=== PATIENT | male | born 1950 | race Caucasian/White ===

== ENCOUNTER 2017-05-18 15:08 | Emergency (ER) | payer OTHER ==
[~2017-05-18] VITALS: Ht 182.9 cm; Wt 110.0 kg
[~2017-05-18 15:08] MED LIST: ASPI-496 PO; CETI10TA18 PO; FLUT15.88 NAS; FURO-92 PO; GLUC-121 PO; HYDR-3245 PO; LEVO100T5 PO; LISI-167 PO; METF500T4 PO; METO25TA35 PO; MONT10TA9 PO; MULT-658 PO; POTA20TA14 PO; POTA99TA2 PO; WARF2TAB PO-COUM; WARF2TAB7 PO
[2017-05-18 16:33] LABS: HEMATOCRIT 43.1 % (39.2-51.8); HEMOGLOBIN 14.4 g/dL (13.7-18.0); WHITE BLOOD COUNT 9.4 x10^3/uL (3.4-10)
[2017-05-18 16:43] LABS: ASPARTATE AMINO TRANSFERASE 19 U/L (15-37); BLOOD UREA NITROGEN 15 mg/dL (7-18)
[2017-05-18 17:00] VITALS: BP 127/84
== END 2017-05-18 17:35 | disposition home or self-care (01) ==
LOC: ED 16:55
DX: M54.9 Dorsalgia, unspecified (principal); M79.1 Myalgia; E11.9 Type 2 diabetes mellitus without complications
CPT/HCPCS: 36415; 76770; 80053; 81001; 85025; 99285

== ENCOUNTER 2017-05-26 01:08 | Inpatient (IN) | payer OTHER, MEDICARE ==
[~2017-05-26] VITALS: Ht 182.9 cm; Wt 106.1 kg
[2017-05-26] MEDS ORDERED: SODIUM CHLORIDE 0.9% 1,000ML IVBOLUS ONE (01:30)
[2017-05-26] MEDS ORDERED: ONDANSETRON 2MG/ML, 2ML IVPush ONE (01:30)
[2017-05-26 01:49] LABS: HEMATOCRIT 40.8 % (39.2-51.8); HEMOGLOBIN 13.7 g/dL (13.7-18.0); WHITE BLOOD COUNT 7.6 x10^3/uL (3.4-10)
[2017-05-26] MEDS ORDERED: ONDANSETRON 2MG/ML, 2ML ONE (01:51)
[2017-05-26] MEDS ORDERED: HYDROmorphone 1 MG/ML, 1ML ONE ×3 (01:51→21:01)
[2017-05-26] MEDS: HYDROmorphone 1 MG/ML, 1ML IVPush PRN ×2 (01:57→04:28)
[2017-05-26 01:58] LABS: ASPARTATE AMINO TRANSFERASE 22 U/L (15-37); BLOOD UREA NITROGEN 22 mg/dL (7-18)
[2017-05-26] MEDS ORDERED: DIAZEPAM 5 MG/ML, 2ML IV ONE (03:00)
[2017-05-26] MEDS ORDERED: HYDROmorphone 1 MG/ML, 1ML IV ONE (06:00)
[2017-05-26] MEDS ORDERED: KETOROLAC 30 MG/1 ML IVPush ONE (06:00)
[2017-05-26] MEDS ORDERED: LABETALOL 5MG/ML, 20ML IVPush PRN (07:00)
[2017-05-26] MEDS ORDERED: methylPREDNISolone 4mg DOSE PACK PO SCH (07:00)
[2017-05-26] MEDS ORDERED: DEXTROSE 4 GM TAB.CHEW PO PRN (07:00)
[2017-05-26] MEDS ORDERED: DEXTROSE 50%, 50ML SYRINGE IVPush PRN (07:00)
[2017-05-26] MEDS ORDERED: GLUCAGON 1 MG IM PRN (07:00)
[2017-05-26] MEDS ORDERED: ACETAMINOPHEN 325 MG TABLET PO PRN (07:00)
[2017-05-26] MEDS: HYDROcodone/APAP 10/325 MG TABLET PO PRN ×4 (07:44→22:10)
[2017-05-26] MEDS: ENOXAPARIN 40 MG/0.4 ML SQ SCH (07:44)
[2017-05-26] MEDS: KETOROLAC 30 MG/1 ML IVPush SCH ×3 (07:44→19:30)
[2017-05-26 08:02] VITALS: BP 125/84
[2017-05-26] MEDS ORDERED: OMNIPAQUE 350 MG/ML, 150 ML BOTTLE ONE (09:47)
[2017-05-26] MEDS: FLUTICASONE NASAL SPRAY 16GM NAS SCH (10:27)
[2017-05-26] MEDS: METHOCARBAMOL 1,000 MG in DEXTROSE 5% 100 ML IV SCH ×2 (10:31→21:03)
[2017-05-26] MEDS: NS + 20MEQ KCL 1,000 ML IV SCH (10:31)
[2017-05-26] MEDS: SODIUM CHLORIDE FLUSH 10ML SYR IVF SCH ×2 (10:32→21:07)
[2017-05-26] MEDS: DOCUSATE 100 MG CAPSULE PO SCH ×2 (10:33→21:08)
[2017-05-26] MEDS: LEVOTHYROXINE 100 MCG TABLET PO SCH (10:34)
[2017-05-26] MEDS: metFORMIN 500 MG TABLET PO SCH ×2 (10:34→21:08)
[2017-05-26] MEDS: MULTIVITAMIN 1 TABLET PO SCH (10:34)
[2017-05-26] MEDS: ASPIRIN 81 MG TABLET EC PO SCH (10:34)
[2017-05-26] MEDS: MONTELUKAST 10 MG TABLET PO SCH (10:34)
[2017-05-26 12:41] VITALS: BP 136/90
[2017-05-26] MEDS: HYDROmorphone 2 MG/ML, 1ML IVPush PRN ×3 (13:28→21:03)
[2017-05-26 15:36] LABS: PATH.CAST-FLAG NOT PRESENT; SPERM-FLAG NOT PRESENT; SRC-FLAG NOT PRESENT; XTAL-FLAG NOT PRESENT; YLC-FLAG NOT PRESENT
[2017-05-26] MEDS ORDERED: GADOBUTROL 10 MMOL/10 ML PFS ONE (16:58)
[2017-05-26] MEDS: CEFTRIAXONE PMX 1GM/50ML 50 ML IV SCH (18:09)
[2017-05-26 19:30] VITALS: BP 135/78
[2017-05-26] MEDS: DOXYCYCLINE 100 MG in DEXTROSE 5% 250 ML IV SCH (19:30)
[2017-05-26] MEDS: TAMSULOSIN 0.4 MG CAP.ER.24H PO SCH (22:10)
[2017-05-27] MEDS: METHOCARBAMOL 1,000 MG in DEXTROSE 5% 100 ML IV SCH (01:02)
[2017-05-27] MEDS: NS + 20MEQ KCL 1,000 ML IV SCH ×2 (01:02→18:31)
[2017-05-27] MEDS ORDERED: HYDROmorphone 1 MG/ML, 1ML ONE ×4 (01:06→23:48)
[2017-05-27] MEDS: KETOROLAC 30 MG/1 ML IVPush SCH ×4 (01:07→18:31)
[2017-05-27] MEDS: HYDROmorphone 2 MG/ML, 1ML IVPush PRN ×4 (01:07→23:52)
[2017-05-27 01:42] VITALS: BP 104/70
[2017-05-27] MEDS: HYDROcodone/APAP 10/325 MG TABLET PO PRN ×6 (03:22→23:33)
[2017-05-27 05:20] LABS: BLOOD UREA NITROGEN 16 mg/dL (7-18)
[2017-05-27] MEDS: ENOXAPARIN 40 MG/0.4 ML SQ SCH (07:29)
[2017-05-27] MEDS: DOXYCYCLINE 100 MG in DEXTROSE 5% 250 ML IV SCH (07:29)
[2017-05-27] MEDS: ASPIRIN 81 MG TABLET EC PO SCH (07:30)
[2017-05-27] MEDS: MONTELUKAST 10 MG TABLET PO SCH (07:30)
[2017-05-27] MEDS: FLUTICASONE NASAL SPRAY 16GM NAS SCH (07:30)
[2017-05-27] MEDS: metFORMIN 500 MG TABLET PO SCH ×2 (07:30→20:44)
[2017-05-27] MEDS: MULTIVITAMIN 1 TABLET PO SCH (07:30)
[2017-05-27] MEDS: SODIUM CHLORIDE FLUSH 10ML SYR IVF SCH ×2 (07:30→20:44)
[2017-05-27] MEDS: DOCUSATE 100 MG CAPSULE PO SCH ×2 (07:30→20:44)
[2017-05-27] MEDS: LEVOTHYROXINE 100 MCG TABLET PO SCH (07:30)
[2017-05-27 07:45] VITALS: BP 108/72
[2017-05-27] MEDS ORDERED: PHARMACOKINETIC MONITORING MC PRN (08:30)
[2017-05-27] MEDS ORDERED: VANCOMYCIN PER PHARMACY MC PRN (08:30)
[2017-05-27] MEDS ORDERED: PHARMACOKINETIC CONSULTATION MC ONE (08:30)
[2017-05-27] MEDS ORDERED: VANCOMYCIN 2,000 MG in SODIUM CHLORIDE 0.9% 500 ML IV SCH (09:00)
[2017-05-27] MEDS: VANCOMYCIN 2,000 MG in SODIUM CHLORIDE 0.9% 500 ML IV SCH ×2 (09:10→20:48)
[2017-05-27 14:24] VITALS: BP 118/79
[2017-05-27] MEDS: CEFTRIAXONE PMX 1GM/50ML 50 ML IV SCH (16:44)
[2017-05-27 19:19] VITALS: BP 125/80
[2017-05-27] MEDS ORDERED: OMNIPAQUE 180 MG/ML, 10ML VIAL ONE (19:46)
[2017-05-27 20:29] LABS: GLUCOSE, CSF 94 mg/dL (40-80)
[2017-05-27] MEDS: TAMSULOSIN 0.4 MG CAP.ER.24H PO SCH (20:44)
[2017-05-27] MEDS: INSULIN ASPART 100 UNITS/ML, PEN SQ-INSULIN SCH ×2 (21:00→21:02)
[2017-05-28 01:25] VITALS: BP 149/89
[2017-05-28] MEDS: KETOROLAC 30 MG/1 ML IVPush SCH ×4 (01:38→18:36)
[2017-05-28] MEDS: HYDROcodone/APAP 10/325 MG TABLET PO PRN ×4 (04:15→22:21)
[2017-05-28 04:46] LABS: HEMATOCRIT 37.8 % (39.2-51.8); HEMOGLOBIN 12.8 g/dL (13.7-18.0); WHITE BLOOD COUNT 12.8 x10^3/uL (3.4-10)
[2017-05-28 05:00] LABS: BLOOD UREA NITROGEN 16 mg/dL (7-18)
[2017-05-28 06:54] VITALS: BP 143/88
[2017-05-28] MEDS: LEVOTHYROXINE 100 MCG TABLET PO SCH (08:39)
[2017-05-28] MEDS: DOCUSATE 100 MG CAPSULE PO SCH ×2 (08:39→21:20)
[2017-05-28] MEDS: ASPIRIN 81 MG TABLET EC PO SCH (08:39)
[2017-05-28] MEDS: metFORMIN 500 MG TABLET PO SCH ×2 (08:39→21:20)
[2017-05-28] MEDS: MONTELUKAST 10 MG TABLET PO SCH (08:39)
[2017-05-28] MEDS: ENOXAPARIN 40 MG/0.4 ML SQ SCH (08:40)
[2017-05-28] MEDS: NS + 20MEQ KCL 1,000 ML IV SCH ×2 (08:40→22:21)
[2017-05-28] MEDS: INSULIN ASPART 100 UNITS/ML, PEN SQ-INSULIN SCH ×4 (08:40→21:20)
[2017-05-28] MEDS: FLUTICASONE NASAL SPRAY 16GM NAS SCH (08:41)
[2017-05-28] MEDS: SODIUM CHLORIDE FLUSH 10ML SYR IVF SCH ×2 (08:42→21:21)
[2017-05-28] MEDS: MULTIVITAMIN 1 TABLET PO SCH (08:42)
[2017-05-28] MEDS: VANCOMYCIN 2,000 MG in SODIUM CHLORIDE 0.9% 500 ML IV SCH ×2 (09:31→21:19)
[2017-05-28 14:19] VITALS: BP 149/93
[2017-05-28] MEDS: CEFTRIAXONE PMX 1GM/50ML 50 ML IV SCH (15:55)
[2017-05-28 20:42] VITALS: BP 167/103
[2017-05-28] MEDS: POLYETHYLENE GLYCOL 17 GM PACKET PO PRN (21:19)
[2017-05-28] MEDS: TAMSULOSIN 0.4 MG CAP.ER.24H PO SCH (21:20)
[2017-05-29] MEDS ORDERED: HYDROmorphone 1 MG/ML, 1ML ONE ×2 (00:16→16:02)
[2017-05-29] MEDS: KETOROLAC 30 MG/1 ML IVPush SCH ×4 (00:21→19:31)
[2017-05-29] MEDS: HYDROmorphone 2 MG/ML, 1ML IVPush PRN ×3 (00:21→16:09)
[2017-05-29 00:54] VITALS: BP 149/89
[2017-05-29] MEDS: HYDROcodone/APAP 10/325 MG TABLET PO PRN ×5 (04:56→20:26)
[2017-05-29 05:37] LABS: HEMATOCRIT 37.9 % (39.2-51.8); HEMOGLOBIN 12.4 g/dL (13.7-18.0); WHITE BLOOD COUNT 12.4 x10^3/uL (3.4-10)
[2017-05-29 07:30] VITALS: BP 192/121
[2017-05-29] MEDS: INSULIN ASPART 100 UNITS/ML, PEN SQ-INSULIN SCH ×4 (07:47→20:36)
[2017-05-29] MEDS: ENOXAPARIN 40 MG/0.4 ML SQ SCH (07:48)
[2017-05-29] MEDS: MULTIVITAMIN 1 TABLET PO SCH (07:49)
[2017-05-29] MEDS: metFORMIN 500 MG TABLET PO SCH ×2 (07:49→16:52)
[2017-05-29] MEDS: DOCUSATE 100 MG CAPSULE PO SCH ×2 (07:49→20:26)
[2017-05-29] MEDS: ASPIRIN 81 MG TABLET EC PO SCH (07:49)
[2017-05-29] MEDS: MONTELUKAST 10 MG TABLET PO SCH (07:50)
[2017-05-29] MEDS: LEVOTHYROXINE 100 MCG TABLET PO SCH (07:50)
[2017-05-29] MEDS: SODIUM CHLORIDE FLUSH 10ML SYR IVF SCH ×2 (07:53→20:26)
[2017-05-29] MEDS: POLYETHYLENE GLYCOL 17 GM PACKET PO PRN (07:59)
[2017-05-29] MEDS: VANCOMYCIN 2,000 MG in SODIUM CHLORIDE 0.9% 500 ML IV SCH (09:42)
[2017-05-29] MEDS: NS + 20MEQ KCL 1,000 ML IV SCH (09:45)
[2017-05-29] MEDS: CETIRIZINE 10 MG TABLET PO SCH (11:00)
[2017-05-29] MEDS ORDERED: ENALAPRILAT 1.25 MG/ML, 2ML IV PRN (11:00)
[2017-05-29] MEDS ORDERED: hydrALAzine 20 MG/ML, 1ML IV PRN (11:00)
[2017-05-29] MEDS: FLUTICASONE NASAL SPRAY 16GM NAS SCH (11:34)
[2017-05-29 11:46] VITALS: BP 168/105
[2017-05-29] MEDS ORDERED: [UNRECOGNIZED DRUG - OTHER] SQ SCH (12:30)
[2017-05-29] MEDS ORDERED: DULAGLUTIDE SQ SCH (12:30)
[2017-05-29 13:00] VITALS: BP 127/58
[2017-05-29] MEDS ORDERED: CEFTRIAXONE PMX 2GM/50ML 50 ML IV SCH (13:00)
[2017-05-29] MEDS: BISACODYL 10 MG SUPP PR PRN (18:43)
[2017-05-29 20:00] VITALS: BP 148/97
[2017-05-29] MEDS: TAMSULOSIN 0.4 MG CAP.ER.24H PO SCH (20:26)
[2017-05-30] MEDS: HYDROcodone/APAP 10/325 MG TABLET PO PRN ×6 (00:01→23:56)
[2017-05-30] MEDS: KETOROLAC 30 MG/1 ML IVPush SCH ×4 (01:17→19:51)
[2017-05-30] MEDS: HYDROmorphone 2 MG/ML, 1ML IVPush PRN ×4 (01:17→14:38)
[2017-05-30 01:50] VITALS: BP 148/87
[2017-05-30] MEDS: FLUTICASONE NASAL SPRAY 16GM NAS SCH (07:59)
[2017-05-30] MEDS: INSULIN ASPART 100 UNITS/ML, PEN SQ-INSULIN SCH ×4 (08:00→21:48)
[2017-05-30] MEDS: NS + 20MEQ KCL 1,000 ML IV SCH (08:00)
[2017-05-30 08:30] VITALS: BP 163/96
[2017-05-30] MEDS: CETIRIZINE 10 MG TABLET PO SCH (09:00)
[2017-05-30] MEDS ORDERED: PROPOFOL 10 MG/ML, 20ML ONE (12:04)
[2017-05-30] MEDS: MULTIVITAMIN 1 TABLET PO SCH (13:38)
[2017-05-30] MEDS: ASPIRIN 81 MG TABLET EC PO SCH (13:38)
[2017-05-30] MEDS: ENOXAPARIN 40 MG/0.4 ML SQ SCH (13:38)
[2017-05-30] MEDS: metFORMIN 500 MG TABLET PO SCH ×2 (13:38→17:32)
[2017-05-30] MEDS: DOCUSATE 100 MG CAPSULE PO SCH ×2 (13:38→21:45)
[2017-05-30] MEDS: LEVOTHYROXINE 100 MCG TABLET PO SCH (13:39)
[2017-05-30] MEDS: MONTELUKAST 10 MG TABLET PO SCH (13:39)
[2017-05-30] MEDS: SODIUM CHLORIDE FLUSH 10ML SYR IVF SCH ×2 (13:42→21:00)
[2017-05-30] MEDS: CEFTRIAXONE 2 GM in DEXTROSE 5% 50 ML IV SCH (13:52)
[2017-05-30 15:00] VITALS: BP 134/82
[2017-05-30 18:52] VITALS: BP 147/94
[2017-05-30] MEDS: POTASSIUM CHLORIDE 20 MEQ in SODIUM CHLORIDE 0.9% 1,000 ML IV SCH (21:44)
[2017-05-30] MEDS: TAMSULOSIN 0.4 MG CAP.ER.24H PO SCH (21:45)
[2017-05-31] MEDS: HYDROmorphone 2 MG/ML, 1ML IVPush PRN ×2 (00:49→21:28)
[2017-05-31 00:55] VITALS: BP 148/92
[2017-05-31] MEDS: KETOROLAC 30 MG/1 ML IVPush SCH (02:02)
[2017-05-31 05:06] LABS: HEMATOCRIT 40.8 % (39.2-51.8); HEMOGLOBIN 13.5 g/dL (13.7-18.0); WHITE BLOOD COUNT 15.6 x10^3/uL (3.4-10)
[2017-05-31 05:40] LABS: ASPARTATE AMINO TRANSFERASE 59 U/L (15-37); BLOOD UREA NITROGEN 17 mg/dL (7-18)
[2017-05-31] MEDS: HYDROcodone/APAP 10/325 MG TABLET PO PRN ×5 (06:08→23:24)
[2017-05-31 08:00] VITALS: BP_SYST 127; BP_SYST 135; BP_DIAS 71; BP_DIAS 86
[2017-05-31] MEDS: SODIUM CHLORIDE FLUSH 10ML SYR IVF SCH ×2 (09:00→21:00)
[2017-05-31] MEDS: CETIRIZINE 10 MG TABLET PO SCH (09:00)
[2017-05-31] MEDS: INSULIN ASPART 100 UNITS/ML, PEN SQ-INSULIN SCH ×4 (09:11→21:22)
[2017-05-31] MEDS: MONTELUKAST 10 MG TABLET PO SCH (09:11)
[2017-05-31] MEDS: DOCUSATE 100 MG CAPSULE PO SCH ×2 (09:11→19:54)
[2017-05-31] MEDS: FLUTICASONE NASAL SPRAY 16GM NAS SCH (09:11)
[2017-05-31] MEDS: MULTIVITAMIN 1 TABLET PO SCH (09:11)
[2017-05-31] MEDS: POTASSIUM CHLORIDE 20 MEQ in SODIUM CHLORIDE 0.9% 1,000 ML IV SCH (09:11)
[2017-05-31] MEDS: metFORMIN 500 MG TABLET PO SCH ×2 (09:12→16:40)
[2017-05-31] MEDS: LEVOTHYROXINE 100 MCG TABLET PO SCH (09:12)
[2017-05-31] MEDS: ASPIRIN 81 MG TABLET EC PO SCH (09:12)
[2017-05-31] MEDS: FENTANYL REMOVE PATCH NOTE XX SCH (11:30)
[2017-05-31] MEDS: ENOXAPARIN 40 MG/0.4 ML SQ SCH (12:15)
[2017-05-31] MEDS: GLIMEPIRIDE 1 MG TABLET PO SCH (12:15)
[2017-05-31] MEDS: POLYETHYLENE GLYCOL 17 GM PACKET PO SCH (12:15)
[2017-05-31 14:17] VITALS: BP 162/98
[2017-05-31] MEDS: FENTANYL 50 MCG PATCH TD SCH (14:41)
[2017-05-31] MEDS: CEFTRIAXONE 2 GM in DEXTROSE 5% 50 ML IV SCH (14:41)
[2017-05-31 19:30] VITALS: BP 151/73
[2017-05-31] MEDS: TAMSULOSIN 0.4 MG CAP.ER.24H PO SCH (19:54)
[2017-05-31] MEDS: DIAZEPAM 5 MG TABLET PO PRN (19:54)
[2017-06-01 00:06] VITALS: BP 157/89
[2017-06-01] MEDS: HYDROmorphone 2 MG/ML, 1ML IVPush PRN ×3 (00:27→03:23)
[2017-06-01] MEDS: DIAZEPAM 5 MG TABLET PO PRN ×3 (01:36→20:29)
[2017-06-01 04:54] LABS: HEMATOCRIT 43.5 % (39.2-51.8); HEMOGLOBIN 14.6 g/dL (13.7-18.0); WHITE BLOOD COUNT 15.4 x10^3/uL (3.4-10)
[2017-06-01 05:04] LABS: BLOOD UREA NITROGEN 14 mg/dL (7-18)
[2017-06-01 07:08] VITALS: BP 142/97
[2017-06-01] MEDS: GLIMEPIRIDE 1 MG TABLET PO SCH (08:00)
[2017-06-01] MEDS: ONDANSETRON 2MG/ML, 2ML IVPush PRN (08:06)
[2017-06-01] MEDS: SODIUM CHLORIDE FLUSH 10ML SYR IVF SCH ×2 (09:00→20:30)
[2017-06-01] MEDS: CETIRIZINE 10 MG TABLET PO SCH (09:00)
[2017-06-01] MEDS: ASPIRIN 81 MG TABLET EC PO SCH (09:00)
[2017-06-01] MEDS: DOCUSATE 100 MG CAPSULE PO SCH ×2 (09:00→20:29)
[2017-06-01] MEDS: POLYETHYLENE GLYCOL 17 GM PACKET PO SCH (09:00)
[2017-06-01] MEDS: FLUTICASONE NASAL SPRAY 16GM NAS SCH (09:00)
[2017-06-01] MEDS: GABAPENTIN 300 MG CAPSULE PO SCH ×2 (09:30→16:51)
[2017-06-01] MEDS: INSULIN ASPART 100 UNITS/ML, PEN SQ-INSULIN SCH ×4 (09:47→20:29)
[2017-06-01] MEDS: metFORMIN 500 MG TABLET PO SCH ×2 (09:48→16:51)
[2017-06-01] MEDS: MULTIVITAMIN 1 TABLET PO SCH (09:49)
[2017-06-01] MEDS: LEVOTHYROXINE 100 MCG TABLET PO SCH (09:50)
[2017-06-01] MEDS: MONTELUKAST 10 MG TABLET PO SCH (09:50)
[2017-06-01] MEDS: PROCHLORPERAZINE 5 MG/ML, 2ML IV PRN ×2 (10:27→16:51)
[2017-06-01] MEDS: BISACODYL 10 MG SUPP PR PRN (11:44)
[2017-06-01] MEDS: CALCIUM CARBONATE 500 MG TAB.CHEW PO PRN ×2 (12:04→16:51)
[2017-06-01 13:19] VITALS: BP 131/88
[2017-06-01] MEDS: HYDROcodone/APAP 10/325 MG TABLET PO PRN (14:37)
[2017-06-01] MEDS: CEFTRIAXONE 2 GM in DEXTROSE 5% 50 ML IV SCH (14:37)
[2017-06-01] MEDS: ENOXAPARIN 40 MG/0.4 ML SQ SCH (14:37)
[2017-06-01 19:00] VITALS: BP 118/71
[2017-06-01] MEDS: TAMSULOSIN 0.4 MG CAP.ER.24H PO SCH (20:29)
[2017-06-02 03:17] VITALS: BP 117/81
[2017-06-02 03:33] LABS: HEMOGLOBIN 14.1 g/dL (13.7-18.0); WHITE BLOOD COUNT 13.4 x10^3/uL (3.4-10)
[2017-06-02 03:40] LABS: ASPARTATE AMINO TRANSFERASE 27 U/L (15-37); BLOOD UREA NITROGEN 18 mg/dL (7-18)
[2017-06-02 06:00] VITALS: BP 119/80
[2017-06-02] MEDS: MONTELUKAST 10 MG TABLET PO SCH (08:16)
[2017-06-02] MEDS: MULTIVITAMIN 1 TABLET PO SCH (08:16)
[2017-06-02] MEDS: GLIMEPIRIDE 1 MG TABLET PO SCH (08:17)
[2017-06-02] MEDS: DOCUSATE 100 MG CAPSULE PO SCH ×2 (08:17→21:36)
[2017-06-02] MEDS: metFORMIN 500 MG TABLET PO SCH ×2 (08:17→16:55)
[2017-06-02] MEDS: ASPIRIN 81 MG TABLET EC PO SCH (08:17)
[2017-06-02] MEDS: LEVOTHYROXINE 100 MCG TABLET PO SCH (08:17)
[2017-06-02] MEDS: SODIUM CHLORIDE FLUSH 10ML SYR IVF SCH ×2 (08:17→21:36)
[2017-06-02] MEDS: GABAPENTIN 300 MG CAPSULE PO SCH ×2 (08:17→21:36)
[2017-06-02] MEDS: POLYETHYLENE GLYCOL 17 GM PACKET PO SCH (08:17)
[2017-06-02] MEDS: CETIRIZINE 10 MG TABLET PO SCH (08:20)
[2017-06-02] MEDS: INSULIN ASPART 100 UNITS/ML, PEN SQ-INSULIN SCH ×4 (08:20→21:58)
[2017-06-02] MEDS: HYDROcodone/APAP 10/325 MG TABLET PO PRN ×3 (09:53→21:45)
[2017-06-02] MEDS: ENOXAPARIN 40 MG/0.4 ML SQ SCH (13:21)
[2017-06-02 14:54] VITALS: BP 118/71
[2017-06-02] MEDS: CEFTRIAXONE 2 GM in DEXTROSE 5% 50 ML IV SCH (15:00)
[2017-06-02 20:26] VITALS: BP 113/61
[2017-06-02] MEDS: TAMSULOSIN 0.4 MG CAP.ER.24H PO SCH (21:36)
[2017-06-02] MEDS: FLUTICASONE NASAL SPRAY 16GM NAS SCH (21:37)
[2017-06-03 02:42] VITALS: BP 135/83
[2017-06-03 06:31] LABS: HEMATOCRIT 40.3 % (39.2-51.8); HEMOGLOBIN 13.5 g/dL (13.7-18.0)
[2017-06-03 06:36] LABS: BLOOD UREA NITROGEN 13 mg/dL (7-18)
[2017-06-03 07:39] VITALS: BP 132/88
[2017-06-03] MEDS: INSULIN ASPART 100 UNITS/ML, PEN SQ-INSULIN SCH ×2 (08:05→11:50)
[2017-06-03] MEDS: POLYETHYLENE GLYCOL 17 GM PACKET PO SCH (08:06)
[2017-06-03] MEDS: CETIRIZINE 10 MG TABLET PO SCH (08:06)
[2017-06-03] MEDS: GABAPENTIN 300 MG CAPSULE PO SCH (08:07)
[2017-06-03] MEDS: MULTIVITAMIN 1 TABLET PO SCH (08:07)
[2017-06-03] MEDS: MONTELUKAST 10 MG TABLET PO SCH (08:07)
[2017-06-03] MEDS: LEVOTHYROXINE 100 MCG TABLET PO SCH (08:07)
[2017-06-03] MEDS: GLIMEPIRIDE 1 MG TABLET PO SCH (08:07)
[2017-06-03] MEDS: metFORMIN 500 MG TABLET PO SCH (08:07)
[2017-06-03] MEDS: DOCUSATE 100 MG CAPSULE PO SCH (08:07)
[2017-06-03] MEDS: ASPIRIN 81 MG TABLET EC PO SCH (08:07)
[2017-06-03] MEDS: SODIUM CHLORIDE FLUSH 10ML SYR IVF SCH (09:00)
[2017-06-03] MEDS ORDERED: DIAZ5TAB4 PO (11:03)
[2017-06-03] MEDS ORDERED: CALC200T24 PO (11:03)
[2017-06-03] MEDS ORDERED: FENT1PAT76 TD (11:03)
[2017-06-03] MEDS ORDERED: METF500T PO (11:03)
[2017-06-03] MEDS ORDERED: TAMS-11 PO (11:03)
[2017-06-03] MEDS ORDERED: POLY17PO5 PO (11:03)
[2017-06-03] MEDS ORDERED: GLIM1TAB PO (11:03)
[2017-06-03] MEDS ORDERED: CEFT1FRO2 IV (11:03)
[2017-06-03] MEDS ORDERED: GABA300C10 PO (11:03)
[2017-06-03] MEDS ORDERED: IBUP-1221 PO (11:12)
[2017-06-03] MEDS: FENTANYL REMOVE PATCH NOTE XX SCH (11:30)
[2017-06-03] MEDS: CEFTRIAXONE 2 GM in DEXTROSE 5% 50 ML IV SCH (11:49)
[2017-06-03 13:15] VITALS: BP 124/76
[2017-06-03] MEDS: FENTANYL 50 MCG PATCH TD SCH (13:53)
[2017-06-03] MEDS: ONDANSETRON 2MG/ML, 2ML IVPush PRN (13:56)
[2017-06-05] MEDS ORDERED: TRULICITY 1.5 MG SQ SCH (12:30)
== END 2017-06-03 14:28 | disposition home or self-care (01) | DRG 314 ==
LOC: ED 01:24 → EDIP 06:00 → 4NOR 07:32 → DCLOUNGE 06-03 14:04
PROVIDERS: ADMIT Hospitalist; ATTEND Family Medicine
PROC: 009U3ZX Drainage of Spinal Canal, Percutaneous Approach, Diagnostic (ICD-10-PCS; principal; 2017-05-27)
PROC: B01B1ZZ Fluoroscopy of Spinal Cord using Low Osmolar Contrast (ICD-10-PCS; 2017-05-27)
PROC: 02HV33Z Insertion of Infusion Device into Superior Vena Cava, Percutaneous Approach (ICD-10-PCS; 2017-06-01)
PROC: B5181ZA Fluoroscopy of Superior Vena Cava using Low Osmolar Contrast, Guidance (ICD-10-PCS; 2017-06-01)
DX: T82.6XXA Infection and inflammatory reaction due to cardiac valve prosthesis, initial encounter (principal); A41.9 Sepsis, unspecified organism; G06.1 Intraspinal abscess and granuloma; E44.0 Moderate protein-calorie malnutrition; G96.19 Other disorders of meninges, not elsewhere classified; J18.9 Pneumonia, unspecified organism; I33.0 Acute and subacute infective endocarditis; E87.1 Hypo-osmolality and hyponatremia; Q23.1 Congenital insufficiency of aortic valve; G89.4 Chronic pain syndrome; E03.9 Hypothyroidism, unspecified; E11.65 Type 2 diabetes mellitus with hyperglycemia; Y83.1 Surgical operation with implant of artificial internal device as the cause of abnormal reaction of the patient, or of later complication, without mention of misadventure at the time of the procedure; K59.00 Constipation, unspecified; M54.30 Sciatica, unspecified side; T38.0X5A Adverse effect of glucocorticoids and synthetic analogues, initial encounter; Z68.31 Body mass index [BMI] 31.0-31.9, adult; Z79.84 Long term (current) use of oral hypoglycemic drugs; Z82.49 Family history of ischemic heart disease and other diseases of the circulatory system; Z83.3 Family history of diabetes mellitus; Z85.828 Personal history of other malignant neoplasm of skin; Z87.442 Personal history of urinary calculi; Z87.891 Personal history of nicotine dependence; Z95.3 Presence of xenogenic heart valve; Z90.89 Acquired absence of other organs; Z80.9 Family history of malignant neoplasm, unspecified; Z79.899 Other long term (current) drug therapy; Z79.82 Long term (current) use of aspirin
CPT/HCPCS: 36415; 36569; 62284; 71275; 72132; 72158; 74176; 76937; 77001; 80048; 80053; 80202; 81001; 82040; 82945; 82962; 83036; 83690; 83735; 84100; 84157; 84443; 85025; 85379; 85651; 86140; 87040; 87070; 87075; 87077; 87205; 89051; 93306; 93312; 93325; 96361; 96374; 96375; 96376; A9585; J0696; J1170; J1650; J1815; J1885; J2405; J2704; J3360; J3370; J3480; J7060; J7509; Q9965; Q9967; C1751; J0780; J2800; J7030; J7040

== ENCOUNTER → 2017-07-03 | Outpatient (CLI) | payer MEDICARE ==
[~2017-07-03] MED LIST changes: +CALC200T24 PO; +CEFT1FRO2 IV; +DIAZ5TAB4 PO; +FENT1PAT76 TD; +GABA300C10 PO; +GADOBUTROL 10 MMOL/10 ML PFS ONE; +GLIM1TAB PO; +IBUP-1221 PO; +METF500T PO; +POLY17PO5 PO; +TAMS-11 PO
== END ==
LOC: RAD 12:22
PROVIDERS: ATTEND Internal Medicine Infectious Disease
DX: M51.34 Other intervertebral disc degeneration, thoracic region (principal); M46.26 Osteomyelitis of vertebra, lumbar region; G06.1 Intraspinal abscess and granuloma
CPT/HCPCS: 72157; 72158; A9585

== ENCOUNTER → 2017-10-13 | Outpatient (CLI) | payer MEDICARE, OTHER ==
[~2017-10-13] MED LIST changes: -GADOBUTROL 10 MMOL/10 ML PFS ONE
== END | disposition home or self-care (01) ==
LOC: CFH 09:17
PROVIDERS: ATTEND Internal Medicine Infectious Disease
DX: I82.622 Acute embolism and thrombosis of deep veins of left upper extremity (principal)

== ENCOUNTER → 2018-07-07 | Outpatient (CLI) | payer MEDICARE, OTHER ==
[~2018-07-07] MED LIST changes: +METF500T17 PO; -METF500T4 PO; -WARF2TAB7 PO; +WARF2TAB99 PO
== END | disposition home or self-care (01) ==
LOC: CVU 12:13
PROVIDERS: ATTEND Internal Medicine Cardiovascular Disease
DX: I35.1 Nonrheumatic aortic (valve) insufficiency (principal); E11.9 Type 2 diabetes mellitus without complications
CPT/HCPCS: 0399T; 93306

== ENCOUNTER 2020-07-21 15:46 | Outpatient (CLI) | payer MEDICARE, OTHER ==
[~2020-07-21 15:46] MED LIST changes: +FLUT15.845 NAS; -FLUT15.88 NAS; -MONT10TA9 PO; +MONT10TA96 PO
== END 2020-07-21 23:59 | disposition home or self-care (01) ==
LOC: CFH 15:46
PROVIDERS: ATTEND Internal Medicine Cardiovascular Disease
DX: I51.7 Cardiomegaly (principal); I35.1 Nonrheumatic aortic (valve) insufficiency
CPT/HCPCS: 93306